=== PATIENT | male | born 1960 | race Caucasian/White ===

== ENCOUNTER 2024-04-20 16:36 | Inpatient (IN) | payer OTHER ==
[2024-04-20 16:42] VITALS: BMI 32.5
[2024-04-20] MEDS ORDERED: ACETAMINOPHEN INJECTION 100 ML IVPB ONE (17:44)
[2024-04-20] MEDS ORDERED: CEFTRIAXONE 1 GM/50 ML BAG ONE (17:44)
[2024-04-20 17:46] LABS: HEMATOCRIT 43.2 % (35.4-49); MCH 32.1 pg (25.7-33.7); MCHC 34.6 g/dl (32.0-35.9); MEAN CELL VOLUME 92.6 fl (80-96); MEAN PLT VOLUME 9.4 fl (7.5-11.1); PLATELET COUNT 116 10^3/uL (134-434); RBC 4.66 M/mm3 (4.00-5.60); RDW 13.3 % (11.9-15.9); WHITE BLOOD COUNT 12.2 K/mm3 (4.0-10.0)
[2024-04-20 17:47] LABS: VENOUS BASE EXCESS -1.2 mmol/L (-2-2); VENOUS O2 SATURATION 76.7 % (70-80); VENOUS PCO2 33.8 mmHg (38-52); VENOUS PH 7.435 (7.310-7.410)
[2024-04-20 17:50] LABS: EPI CELLS 18 /uL (0-25.1); HYALINE CASTS 11 /uL (0-3.1); PH,URINE 5.5 (5.0-8.0); URINE APPEARANCE CLOUDY; URINE BILIRUBIN 1+ (NEGATIVE); URINE COLOR DK YELLOW; URINE GLUCOSE (UA) NEGATIVE (NEGATIVE); URINE KETONE TRACE (NEGATIVE); URINE LEUK ESTERASE 2+ (NEGATIVE); URINE NITRITE POSITIVE (NEGATIVE); URINE PROTEIN 2+ (NEGATIVE); URINE RBC 32 /uL (0-23.9); URINE WBC 680 /uL (0-25.8)
[2024-04-20 17:53] LABS: INR 1.39 (0.83-1.09); PROTHROMBIN TIME (PATIENT) 15.6 SEC (9.7-13.0)
[2024-04-20] MEDS: ACETAMINOPHEN 1000 MG/100 ML BAG IVPB ONE (17:53)
[2024-04-20] MEDS: CEFTRIAXONE 1 GM in DEXTROSE 5%-WATER - 100 ML IVPB ONE (17:53)
[2024-04-20] MEDS: SODIUM CHLORIDE 0.9% 1000 ML INFUS.BAG IV STA (17:53)
[2024-04-20 17:56] LABS: ACTIVATED PTT 28.6 SECONDS (25.2-36.5)
[2024-04-20 18:19] LABS: POTASSIUM 3.6 mmol/L (3.5-5.1)
[2024-04-20 18:21] LABS: CALCIUM 8.6 mg/dL (8.5-10.1)
[2024-04-20 18:22] LABS: ALBUMIN 3.4 g/dl (3.4-5.0); BLOOD UREA NITROGEN 22.4 mg/dL (7-18)
[2024-04-20 18:25] LABS: CREATININE 1.1 mg/dL (0.55-1.3)
[2024-04-20 18:26] LABS: URINE BACTERIA 122.5 /uL (0-1359)
[2024-04-20 18:27] LABS: TOT PROT 6.2 g/dl (6.4-8.2)
[2024-04-20 19:12] LABS: ANISOCYTOSIS 0; MACROCYTOSIS 0
[2024-04-20 20:05] LABS: MAGNESIUM 1.9 mg/dL (1.8-2.4)
[2024-04-20] MEDS: SODIUM CHLORIDE 1,000 ML IV SCH (20:35)
[2024-04-20] MEDS ORDERED: ATORVASTATIN CA 10 MG TABLET (FP) ONE (22:05)
[2024-04-20] MEDS: INSULIN ASPART SLIDING SCALE (NOVOLOG) 1 VIAL SQ SCH (22:05)
[2024-04-20] MEDS: ATORVASTATIN CA 10 MG TABLET (FP) PO SCH (22:05)
[2024-04-21] MEDS: PIPERACILLIN/TAZOB 3.375 GM 3.375 GM in DEXTROSE 5%-WATER - 50 ML IVPB SCH ×2 (05:24→23:43)
[2024-04-21] MEDS: CEFTRIAXONE 1 GM in DEXTROSE 5%-WATER - 50 ML IVPB SCH (09:38)
[2024-04-21] MEDS: ALLOPURINOL 100 MG TABLET (FP) PO SCH (09:39)
[2024-04-21] MEDS: ENOXAPARIN NA (PORCINE) 40 MG/0.4 ML DISP.SYRIN SQ SCH (09:39)
[2024-04-21] MEDS: LOSARTAN POTASSIUM 50 MG TABLET PO SCH (09:39)
[2024-04-21] MEDS: SODIUM CHLORIDE 1,000 ML IV SCH (09:40)
[2024-04-21 09:44] LABS: BASO % 0.2 % (0-2.0); EOS % 0.7 % (0-4.5); HEMATOCRIT 39.6 % (35.4-49); LYMPH % 5.3 % (8-40); MCH 32.7 pg (25.7-33.7); MCHC 35.3 g/dl (32.0-35.9); MEAN CELL VOLUME 92.9 fl (80-96); MEAN PLT VOLUME 9.1 fl (7.5-11.1); MONO % 7.2 % (3.8-10.2); NEUT % 86.6 % (42.8-82.8); PLATELET COUNT 90 10^3/uL (134-434); RBC 4.26 M/mm3 (4.00-5.60); RDW 13.2 % (11.9-15.9); WHITE BLOOD COUNT 8.6 K/mm3 (4.0-10.0)
[2024-04-21] MEDS ORDERED: CEFTRIAXONE 1 GM in DEXTROSE 5%-WATER - 50 ML IVPB SCH (10:00)
[2024-04-21 10:08] LABS: POTASSIUM 3.8 mmol/L (3.5-5.1)
[2024-04-21 10:10] LABS: CALCIUM 7.9 mg/dL (8.5-10.1)
[2024-04-21 10:11] LABS: BLOOD UREA NITROGEN 15.3 mg/dL (7-18)
[2024-04-21 10:14] LABS: CREATININE 0.7 mg/dL (0.55-1.3); PHOSPHOROUS 1.3 mg/dL (2.5-4.9)
[2024-04-21 10:15] LABS: BILIRUBIN,TOTAL 0.8 mg/dL (0.2-1); TOT PROT 5.6 g/dl (6.4-8.2)
[2024-04-21 10:16] LABS: MAGNESIUM 2.2 mg/dL (1.8-2.4)
[2024-04-21] MEDS: POTASSIUM PHOSPHATE 15 MM in SODIUM CHLORIDE 250 ML IVPB ONE (12:31)
[2024-04-21] MEDS: PHENAZOPYRIDINE HCL 100 MG TABLET (FP) PO ONE (12:31)
[2024-04-21] MEDS: CEFTRIAXONE 1 GM in DEXTROSE 5%-WATER - 50 ML IVPB ONE (16:43)
[2024-04-21] MEDS: ACETAMINOPHEN 325 MG TABLET (FP) PO PRN (19:46)
[2024-04-22 09:06] LABS: BASO % 0.4 % (0-2.0); EOS % 0.8 % (0-4.5); HEMATOCRIT 41.7 % (35.4-49); HEMOGLOBIN 14.5 GM/dL (11.7-16.9); MCH 31.9 pg (25.7-33.7); MCHC 34.8 g/dl (32.0-35.9); MEAN CELL VOLUME 91.8 fl (80-96); MEAN PLT VOLUME 8.2 fl (7.5-11.1); MONO % 12.6 % (3.8-10.2); NEUT % 79.2 % (42.8-82.8); PLATELET COUNT 94 10^3/uL (134-434); RBC 4.54 M/mm3 (4.00-5.60); RDW 13.3 % (11.9-15.9); WHITE BLOOD COUNT 4.7 K/mm3 (4.0-10.0)
[2024-04-22 09:27] LABS: POTASSIUM 3.7 mmol/L (3.5-5.1)
[2024-04-22 09:32] LABS: BLOOD UREA NITROGEN 10.4 mg/dL (7-18); CALCIUM 8.2 mg/dL (8.5-10.1)
[2024-04-22 09:35] LABS: CREATININE 0.7 mg/dL (0.55-1.3); PHOSPHOROUS 1.7 mg/dL (2.5-4.9)
[2024-04-22] MEDS: CEFTRIAXONE 2 GM in DEXTROSE 5%-WATER 100 ML IVPB SCH (09:54)
[2024-04-22] MEDS: NAPH,MB-DB/K PH,MBDB POWDER PACKET PO ONE (12:59)
[2024-04-23] MEDS: TAMSULOSIN HCL 0.4 MG CAP PO SCH (10:14)
[2024-04-23 12:26] LABS: HEMATOCRIT 40.2 % (35.4-49); MCH 31.9 pg (25.7-33.7); MCHC 34.9 g/dl (32.0-35.9); MEAN CELL VOLUME 91.3 fl (80-96); MEAN PLT VOLUME 7.8 fl (7.5-11.1); PLATELET COUNT 111 10^3/uL (134-434); RDW 13.2 % (11.9-15.9); WHITE BLOOD COUNT 6.1 K/mm3 (4.0-10.0)
[2024-04-23 12:48] LABS: POTASSIUM 3.6 mmol/L (3.5-5.1)
[2024-04-23 12:50] LABS: CALCIUM 8.6 mg/dL (8.5-10.1)
[2024-04-23 12:51] LABS: BLOOD UREA NITROGEN 10.1 mg/dL (7-18)
[2024-04-23 12:54] LABS: CREATININE 0.6 mg/dL (0.55-1.3)
[2024-04-23 12:55] LABS: BILIRUBIN,TOTAL 0.3 mg/dL (0.2-1); TOT PROT 5.9 g/dl (6.4-8.2)
[2024-04-23 13:24] LABS: ALBUMIN 3.1 g/dl (3.4-5.0)
[2024-04-23 15:21] VITALS: RESP 18
[2024-04-23 18:57] VITALS: BP 141/90; PULSE 77; TEMP 97.1
== END 2024-04-23 19:04 | disposition home or self-care (01) | DRG 872 ==
LOC: JER 16:36 → JERBED 19:46 → J5S 04-21 02:17
PROVIDERS: ADMIT Internal Medicine
DX: A41.50 Gram-negative sepsis, unspecified (principal); N39.0 Urinary tract infection, site not specified; I10 Essential (primary) hypertension; D69.6 Thrombocytopenia, unspecified; E78.5 Hyperlipidemia, unspecified; N40.0 Benign prostatic hyperplasia without lower urinary tract symptoms; R73.9 Hyperglycemia, unspecified; M10.9 Gout, unspecified; E83.39 Other disorders of phosphorus metabolism; B96.20 Unspecified Escherichia coli [E. coli] as the cause of diseases classified elsewhere; R50.9 Fever, unspecified; R00.0 Tachycardia, unspecified
CPT/HCPCS: 0241U-QW; 36415; 71046-TC-FY; 74178-TC; 80048; 80053; 81003; 82803; 82962; 83605; 83690; 83735; 84100; 84153; 85025; 85027; 85610; 85730; 86850; 86900; 86901; 87040; 87086; 87186; 93005; 93010; 93306-TC; 99285-25; J0131; Q9967